=== PATIENT | male | born 1985 | race Caucasian/White ===

== ENCOUNTER 2021-08-07 20:28 | Inpatient (IN) | payer OTHER ==
[2021-08-07] MEDS ORDERED: ACETAMINOPHEN 1000 MG/100 ML VIAL (NON FORMULARY) IVPB ONE (21:47)
[2021-08-07] MEDS ORDERED: SODIUM CHLORIDE 0.9% 500 ML INFUS.BAG IV ONE (21:47)
[2021-08-07] MEDS ORDERED: ACETAMINOPHEN INJECTION 100 ML IVPB ONE (21:56)
[2021-08-07 23:03] LABS: HEMATOCRIT 37.1 % (35.4-49); HEMOGLOBIN 12.6 GM/dL (11.7-16.9); MCH 27.7 pg (25.7-33.7); MEAN CELL VOLUME 81.6 fl (80-96); MEAN PLT VOLUME 7.6 fl (7.5-11.1); PLATELET COUNT 311 10^3/uL (134-434); RBC 4.55 M/mm3 (4.00-5.60); WHITE BLOOD COUNT 6.2 K/mm3 (4.0-10.0)
[2021-08-07 23:04] LABS: BASO % 0.6 % (0-2.0); EOS % 1.1 % (0-4.5); LYMPH % 29.1 % (8-40); MONO % 8.6 % (3.8-10.2); NEUT % 60.6 % (42.8-82.8)
[2021-08-07 23:47] LABS: CREATININE 1.4 mg/dL (0.55-1.3)
[2021-08-07 23:48] LABS: ALBUMIN 3.7 g/dl (3.4-5.0); CALCIUM 8.6 mg/dL (8.5-10.1); TOT PROT 7.4 g/dl (6.4-8.2)
[2021-08-07 23:49] LABS: BILIRUBIN,TOTAL 0.5 mg/dL (0.2-1)
[2021-08-08 00:03] LABS: URINE APPEARANCE CLEAR; URINE BILIRUBIN NEGATIVE (NEGATIVE); URINE COLOR YELLOW; URINE GLUCOSE (UA) NEGATIVE (NEGATIVE); URINE KETONE NEGATIVE (NEGATIVE)
[2021-08-08 00:04] LABS: URINE LEUK ESTERASE NEGATIVE (NEGATIVE); URINE NITRITE NEGATIVE (NEGATIVE); URINE PROTEIN NEGATIVE (NEGATIVE); URINE UROBILINOGEN 0.2 mg/dL (0.2-1.0)
[2021-08-08] MEDS ORDERED: CEFTRIAXONE 1 GM in DEXTROSE 5%-WATER - 100 ML IVPB ONE (01:13)
[2021-08-08] MEDS ORDERED: KETOROLAC TROMETHAMINE 15 MG/ML VIAL IVPUSH ONE (01:50)
[2021-08-08] MEDS ORDERED: CEFTRIAXONE 1 GM/50 ML BAG ONE (01:57)
[2021-08-08] MEDS ORDERED: KETOROLAC TROMETHAMINE 15 MG/ML VIAL ONE (02:01)
[2021-08-08] MEDS ORDERED: ACETAMINOPHEN 1000 MG/100 ML VIAL (NON FORMULARY) IVPB PRN (03:10)
[2021-08-08] MEDS ORDERED: morphine SULFATE 4 MG/ML VIAL IVPUSH PRN ×2 (03:11)
[2021-08-08] MEDS: SODIUM CHLORIDE 1,000 ML IV SCH (06:05)
[2021-08-08 08:37] LABS: BLOOD UREA NITROGEN 20.3 mg/dL (7-18); CREATININE 1.3 mg/dL (0.55-1.3); GLUCOSE,RANDOM 95 mg/dL (74-106); SODIUM 141 mmol/L (136-145)
[2021-08-08 08:38] LABS: CALCIUM 8.4 mg/dL (8.5-10.1); CHLORIDE 109 mmol/L (98-107); CO2 27 mmol/L (21-32)
[2021-08-08] MEDS: TAMSULOSIN HCL 0.4 MG CAP PO SCH (08:40)
[2021-08-08] MEDS ORDERED: TAMSULOSIN HCL 0.4 MG CAP ONE (09:08)
[2021-08-08 09:39] LABS: HEMATOCRIT 36.6 % (35.4-49); HEMOGLOBIN 12.5 GM/dL (11.7-16.9); MCH 27.6 pg (25.7-33.7); MCHC 34.3 g/dl (32.0-35.9); MEAN CELL VOLUME 80.7 fl (80-96); MEAN PLT VOLUME 7.6 fl (7.5-11.1); PLATELET COUNT 289 10^3/uL (134-434); RBC 4.54 M/mm3 (4.00-5.60); RDW 13.1 % (11.9-15.9); WHITE BLOOD COUNT 5.9 K/mm3 (4.0-10.0)
[2021-08-08] MEDS ORDERED: morphine SULFATE 4 MG/ML VIAL ONE (09:46)
[2021-08-08] MEDS ORDERED: ENOXAPARIN NA (PORCINE) 40 MG/0.4 ML DISP.SYRIN SQ ONE (09:51)
[2021-08-08] MEDS: ENOXAPARIN NA (PORCINE) 40 MG/0.4 ML DISP.SYRIN SQ SCH ×2 (10:04→21:09)
[2021-08-08 10:21] LABS: PROTHROMBIN TIME (PATIENT) 12.3 SEC (9.7-13.0)
[2021-08-08 12:32] VITALS: BMI 41.1
[2021-08-09] MEDS: SODIUM CHLORIDE 1,000 ML IV SCH (05:27)
[2021-08-09] MEDS: TAMSULOSIN HCL 0.4 MG CAP PO SCH (09:55)
[2021-08-09] MEDS ORDERED: MIDAZOLAM HCL 2 MG/2 ML SINGLE DOSE VIAL ONE (13:38)
[2021-08-09] MEDS ORDERED: PROPOFOL 20 ML ONE (13:38)
[2021-08-09] MEDS ORDERED: SEVOFLURANE 250 ML BTL ONE (13:39)
[2021-08-09] MEDS ORDERED: oxyCODONE HCL 5 MG TABLET PO PRN (13:50)
[2021-08-09] MEDS ORDERED: ONDANSETRON 4 MG/2 ML VIAL IVPUSH PRN ×3 (13:50→16:10)
[2021-08-09] MEDS ORDERED: CEFTRIAXONE 1 GM in DEXTROSE 5%-WATER - 50 ML IVPB ONE (14:00)
[2021-08-09] MEDS ORDERED: LACTATED RINGERS SOLUTION 1,000 ML IV SCH ×2 (14:00→16:00)
[2021-08-09] MEDS ORDERED: cefTRIAXone SODIUM 1 GM VIAL IVPB ONE (14:27)
[2021-08-09] MEDS ORDERED: KETOROLAC TROMETHAMINE 30 MG/1 ML VIAL ONE (15:31)
[2021-08-09] MEDS ORDERED: PROMETHAZINE HCL 25 MG/1 ML VIAL IVPUSH PRN (15:50)
[2021-08-09] MEDS ORDERED: SODIUM CHLORIDE 1,000 ML IV SCH (16:10)
[2021-08-09 17:44] VITALS: BP 134/88; PULSE 56; TEMP 97.7
[2021-08-09] MEDS ORDERED: FLU VACC QS2021-22(6MOS UP)/PF 60 MCG/0.5 ML SYRINGE IM ONE (19:14)
[2021-08-09] MEDS ORDERED: ACETAMINOPHEN 1000 MG/100 ML VIAL (NON FORMULARY) IVPB ONE (19:36)
[2021-08-10] MEDS ORDERED: TAMSULOSIN HCL 0.4 MG CAP PO SCH (08:30)
== END 2021-08-09 20:38 | disposition home or self-care (01) | DRG 446 ==
LOC: JER 20:28 → JERBED 08-08 01:52 → J5S 08-08 11:34
PROVIDERS: ADMIT Internal Medicine; ATTEND Internal Medicine
PROC: 0T778DZ Dilation of Left Ureter with Intraluminal Device, Via Natural or Artificial Opening Endoscopic (ICD-10-PCS; principal; 2021-08-09 14:00)
PROC: 0TC78ZZ Extirpation of Matter from Left Ureter, Via Natural or Artificial Opening Endoscopic (ICD-10-PCS; 2021-08-09 14:00)
PROC: BT1FZZZ Fluoroscopy of Left Kidney, Ureter and Bladder (ICD-10-PCS; 2021-08-09 14:00)
DX: N17.9 Acute kidney failure, unspecified (principal); N13.2 Hydronephrosis with renal and ureteral calculous obstruction; E66.01 Morbid (severe) obesity due to excess calories; Z68.41 Body mass index [BMI] 40.0-44.9, adult
CPT/HCPCS: 36415; 74176-TC; 80048; 80053; 81003; 82360; 85025; 85027; 85610; 87086; 88300-TC; 93005; 93010; 94760; 99285-25; C9803; J0131; U0003; U0005

== ENCOUNTER 2021-08-15 20:03 | Emergency (ER) | payer OTHER ==
[2021-08-15 20:12] VITALS: BP 121/72; BMI 32.4
[2021-08-15] MEDS ORDERED: SODIUM CHLORIDE 0.9% 500 ML INFUS.BAG IV ONE (21:08)
[2021-08-15] MEDS ORDERED: IBUPROFEN 400 MG TABLET (FP) PO ONE ×2 (21:09→21:12)
[2021-08-15 21:55] LABS: BASO % 0.7 % (0-2.0); EOS % 0.9 % (0-4.5); HEMATOCRIT 38.3 % (35.4-49); HEMOGLOBIN 13.2 GM/dL (11.7-16.9); LYMPH % 10.8 % (8-40); MCH 27.5 pg (25.7-33.7); MCHC 34.5 g/dl (32.0-35.9); MEAN CELL VOLUME 79.8 fl (80-96); MEAN PLT VOLUME 7.1 fl (7.5-11.1); MONO % 5.2 % (3.8-10.2); NEUT % 82.4 % (42.8-82.8); PLATELET COUNT 358 10^3/uL (134-434); RDW 12.9 % (11.9-15.9); WHITE BLOOD COUNT 10.3 K/mm3 (4.0-10.0)
[2021-08-15 21:58] LABS: EPI CELLS 4 /uL (0-25.1); HYALINE CASTS 1 /uL (0-3.1); PH,URINE 6.5 (5.0-8.0); URINE APPEARANCE CLEAR; URINE BACTERIA 56 /uL (0-1359); URINE BILIRUBIN NEGATIVE (NEGATIVE); URINE COLOR YELLOW; URINE GLUCOSE (UA) NEGATIVE (NEGATIVE); URINE KETONE NEGATIVE (NEGATIVE); URINE LEUK ESTERASE 1+ (NEGATIVE); URINE NITRITE NEGATIVE (NEGATIVE); URINE PROTEIN NEGATIVE (NEGATIVE); URINE RBC 42 /uL (0-23.9); URINE UROBILINOGEN 0.2 mg/dL (0.2-1.0); URINE WBC 12 /uL (0-25.8)
[2021-08-15 22:10] LABS: CALCIUM 8.4 mg/dL (8.5-10.1)
[2021-08-15 22:11] LABS: ALBUMIN 3.6 g/dl (3.4-5.0)
[2021-08-15 22:14] LABS: CREATININE 1.2 mg/dL (0.55-1.3)
[2021-08-15 22:16] LABS: BILIRUBIN,TOTAL 0.3 mg/dL (0.2-1); TOT PROT 7.8 g/dl (6.4-8.2)
[2021-08-15] MEDS ORDERED: ACETAMINOPHEN 1000 MG/100 ML VIAL (NON FORMULARY) IVPB ONE (23:05)
[2021-08-15] MEDS ORDERED: ACETAMINOPHEN INJECTION 100 ML IVPB ONE (23:39)
[2021-08-16 00:31] VITALS: PULSE 61; TEMP 98.7
== END 2021-08-16 | disposition home or self-care (01) ==
LOC: JER 20:03
PROC: 3E033GC Introduction of Other Therapeutic Substance into Peripheral Vein, Percutaneous Approach (ICD-10-PCS; principal; 2021-08-15)
DX: J02.0 Streptococcal pharyngitis (principal)
CPT/HCPCS: 36415; 80053; 81003; 85025; 87070; 87086; 87186; 87804; 87880; 96374; 99284-25; C9803; J0131; U0003; U0005

== ENCOUNTER 2021-08-16 13:19 | Inpatient (IN) | payer OTHER ==
[2021-08-16] MEDS ORDERED: CEFTRIAXONE 1,000 MG in DEXTROSE 5%-WATER - 50 ML IVPB ONE (13:51)
[2021-08-16] MEDS ORDERED: SODIUM CHLORIDE 1,905 ML IV ONE (13:57)
[2021-08-16] MEDS ORDERED: ACETAMINOPHEN 1000 MG/100 ML VIAL IVPB ONE (14:05)
[2021-08-16] MEDS ORDERED: ACETAMINOPHEN INJECTION 100 ML IVPB ONE (14:26)
[2021-08-16] MEDS ORDERED: CEFTRIAXONE 1 GM/50 ML BAG ONE (14:26)
[2021-08-16 14:34] LABS: BASO % 0.2 % (0-2.0); HEMATOCRIT 38.6 % (35.4-49); HEMOGLOBIN 13.1 GM/dL (11.7-16.9); LYMPH % 5.7 % (8-40); MCH 27.4 pg (25.7-33.7); MEAN CELL VOLUME 80.7 fl (80-96); MEAN PLT VOLUME 7.4 fl (7.5-11.1); MONO % 4.4 % (3.8-10.2); NEUT % 89.7 % (42.8-82.8); PLATELET COUNT 348 10^3/uL (134-434); RBC 4.78 M/mm3 (4.00-5.60); RDW 13.1 % (11.9-15.9)
[2021-08-16 14:39] LABS: VENOUS BASE EXCESS 2.7 mmol/L (-2-2); VENOUS O2 SATURATION 39.4 % (70-80); VENOUS PCO2 32.2 mmHg (38-52); VENOUS PH 7.509 (7.310-7.410)
[2021-08-16 14:41] LABS: INR 1.23 (0.83-1.09); PROTHROMBIN TIME (PATIENT) 15.1 SEC (9.7-13.0)
[2021-08-16 14:43] LABS: ACTIVATED PTT 31.4 SECONDS (25.2-36.5)
[2021-08-16 14:57] LABS: CALCIUM 8.6 mg/dL (8.5-10.1)
[2021-08-16 14:58] LABS: ALBUMIN 3.7 g/dl (3.4-5.0); BLOOD UREA NITROGEN 16.4 mg/dL (7-18)
[2021-08-16 15:01] LABS: CREATININE 1.4 mg/dL (0.55-1.3)
[2021-08-16 15:02] LABS: BILIRUBIN,TOTAL 0.7 mg/dL (0.2-1); TOT PROT 7.9 g/dl (6.4-8.2)
[2021-08-16 15:03] LABS: LACTIC ACID 3.1 mmol/L (0.4-2.0)
[2021-08-16] MEDS ORDERED: TAMSULOSIN HCL 0.4 MG CAP PO ONE (15:15)
[2021-08-16] MEDS ORDERED: morphine CARPU-JECT 4 MG/1 ML DISP.SYRIN IVPUSH ONE (15:17)
[2021-08-16] MEDS ORDERED: SODIUM CHLORIDE 0.9% 500 ML INFUS.BAG IV ONE (15:22)
[2021-08-16] MEDS ORDERED: ONDANSETRON 4 MG/2 ML VIAL IVPUSH ONE (15:22)
[2021-08-16] MEDS ORDERED: PIPERACILLIN/TAZOB 3.375 GM 3.375 GM in DEXTROSE 5%-WATER - 50 ML IVPB ONE (15:28)
[2021-08-16] MEDS ORDERED: SODIUM CHLORIDE 1,000 ML IV SCH (15:30)
[2021-08-16] MEDS ORDERED: VANCOMYCIN/WATER 1,250 MG/250 ML BAG IVPB ONE (15:30)
[2021-08-16] MEDS ORDERED: PIPERACILLIN/TAZOB 3.375 GM 4.5 GM in DEXTROSE 5%-WATER - 50 ML IVPB ONE (15:31)
[2021-08-16] MEDS ORDERED: PIPERACILLIN/TAZOB 4.5 GM 4.5 GM/100 ML BAG IVPB ONE (15:33)
[2021-08-16] MEDS ORDERED: ONDANSETRON 4 MG/2 ML VIAL ONE (15:35)
[2021-08-16] MEDS ORDERED: METOCLOPRAMIDE HCL INJECTION 10 MG/2 ML VIAL IVPB ONE (15:40)
[2021-08-16] MEDS ORDERED: METOCLOPRAMIDE HCL INJECTION 10 MG/2 ML VIAL ONE (15:42)
[2021-08-16] MEDS ORDERED: MEROPENEM 1 GM in DEXTROSE 5%-WATER 100 ML IVPB SCH (16:00)
[2021-08-16] MEDS ORDERED: MEROPENEM 1 GM VIAL (RESTRICTED TO ID) IVPB ONE (16:01)
[2021-08-16] MEDS: MEROPENEM 1 GM in DEXTROSE 5%-WATER 100 ML IVPB SCH (16:10)
[2021-08-16 17:25] LABS: EPI CELLS 17 /uL (0-25.1); HYALINE CASTS 2 /uL (0-3.1); URINE APPEARANCE CLEAR; URINE BACTERIA 62 /uL (0-1359); URINE BILIRUBIN NEGATIVE (NEGATIVE); URINE COLOR YELLOW; URINE GLUCOSE (UA) NEGATIVE (NEGATIVE); URINE KETONE NEGATIVE (NEGATIVE); URINE LEUK ESTERASE 2+ (NEGATIVE); URINE NITRITE NEGATIVE (NEGATIVE); URINE PROTEIN 1+ (NEGATIVE); URINE RBC 651 /uL (0-23.9); URINE UROBILINOGEN 0.2 mg/dL (0.2-1.0); URINE WBC 159 /uL (0-25.8)
[2021-08-16] MEDS ORDERED: ACETAMINOPHEN 325 MG TABLET (FP) PO ONE (18:36)
[2021-08-16] MEDS ORDERED: ACETAMINOPHEN 325 MG TABLET (FP) ONE (18:45)
[2021-08-16] MEDS: SODIUM CHLORIDE 1,000 ML IV SCH ×2 (18:48→22:55)
[2021-08-16 19:51] LABS: LACTIC ACID 2.8 mmol/L (0.4-2.0)
[2021-08-16] MEDS: HEPARIN NA (PORCINE) 5,000 UNITS/ML 1ML VIAL SQ SCH (22:58)
[2021-08-16] MEDS: ACETAMINOPHEN 325 MG TABLET (FP) PO PRN (23:46)
[2021-08-17] MEDS ORDERED: MEROPENEM 1 GM VIAL (RESTRICTED TO ID) IVPB ONE ×3 (01:03→17:54)
[2021-08-17] MEDS ORDERED: DEXTROSE 5%-WATER 100 ML IVPB ONE ×3 (01:03→17:54)
[2021-08-17] MEDS: MEROPENEM 1 GM in DEXTROSE 5%-WATER 100 ML IVPB SCH ×3 (01:17→18:18)
[2021-08-17 04:33] VITALS: BMI 30.7
[2021-08-17] MEDS: ACETAMINOPHEN 325 MG TABLET (FP) PO PRN ×2 (06:08→14:18)
[2021-08-17] MEDS: HEPARIN NA (PORCINE) 5,000 UNITS/ML 1ML VIAL SQ SCH ×3 (06:08→21:30)
[2021-08-17] MEDS: SODIUM CHLORIDE 1,000 ML IV SCH ×2 (06:10→14:43)
[2021-08-17] MEDS: TAMSULOSIN HCL 0.4 MG CAP PO SCH (10:27)
[2021-08-17 10:47] LABS: BASO % 0.5 % (0-2.0); HEMATOCRIT 33.5 % (35.4-49); HEMOGLOBIN 11.2 GM/dL (11.7-16.9); LYMPH % 8.1 % (8-40); MCHC 33.4 g/dl (32.0-35.9); MEAN CELL VOLUME 80.7 fl (80-96); MEAN PLT VOLUME 7.3 fl (7.5-11.1); MONO % 6.3 % (3.8-10.2); NEUT % 85.1 % (42.8-82.8); PLATELET COUNT 287 10^3/uL (134-434); RBC 4.15 M/mm3 (4.00-5.60); RDW 13.4 % (11.9-15.9); WHITE BLOOD COUNT 19.8 K/mm3 (4.0-10.0)
[2021-08-17 11:14] LABS: CALCIUM 7.6 mg/dL (8.5-10.1); MAGNESIUM 1.8 mg/dL (1.8-2.4)
[2021-08-17 11:15] LABS: BLOOD UREA NITROGEN 11.9 mg/dL (7-18)
[2021-08-17 11:17] LABS: PHOSPHOROUS 2.6 mg/dL (2.5-4.9)
[2021-08-17 11:18] LABS: CREATININE 1.1 mg/dL (0.55-1.3)
[2021-08-17 11:19] LABS: BILIRUBIN,TOTAL 0.5 mg/dL (0.2-1); TOT PROT 6.4 g/dl (6.4-8.2)
[2021-08-17] MEDS ORDERED: PT OWN MED DRAWER 7, Y5N ONE (11:24)
[2021-08-17 11:31] LABS: ALBUMIN 2.6 g/dl (3.4-5.0)
[2021-08-17] MEDS ORDERED: ACETAMINOPHEN 1000 MG/100 ML VIAL IVPB ONE (22:52)
[2021-08-18] MEDS: SODIUM CHLORIDE 1,000 ML IV SCH ×2 (01:15→17:06)
[2021-08-18] MEDS ORDERED: MEROPENEM 1 GM VIAL (RESTRICTED TO ID) IVPB ONE ×3 (01:50→16:53)
[2021-08-18] MEDS ORDERED: DEXTROSE 5%-WATER 100 ML IVPB ONE ×3 (01:50→16:53)
[2021-08-18] MEDS: MEROPENEM 1 GM in DEXTROSE 5%-WATER 100 ML IVPB SCH ×3 (01:51→17:06)
[2021-08-18] MEDS: HEPARIN NA (PORCINE) 5,000 UNITS/ML 1ML VIAL SQ SCH ×3 (05:59→21:24)
[2021-08-18 09:04] LABS: BASO % 0.7 % (0-2.0); EOS % 0.1 % (0-4.5); HEMATOCRIT 33.7 % (35.4-49); HEMOGLOBIN 11.3 GM/dL (11.7-16.9); LYMPH % 14.3 % (8-40); MCHC 33.4 g/dl (32.0-35.9); MEAN CELL VOLUME 80.8 fl (80-96); MEAN PLT VOLUME 7.9 fl (7.5-11.1); NEUT % 77.9 % (42.8-82.8); PLATELET COUNT 293 10^3/uL (134-434); RBC 4.17 M/mm3 (4.00-5.60); RDW 13.2 % (11.9-15.9); WHITE BLOOD COUNT 12.8 K/mm3 (4.0-10.0)
[2021-08-18 09:31] LABS: CALCIUM 8.1 mg/dL (8.5-10.1)
[2021-08-18 09:35] LABS: CREATININE 0.7 mg/dL (0.55-1.3)
[2021-08-18] MEDS: TAMSULOSIN HCL 0.4 MG CAP PO SCH (09:46)
[2021-08-19] MEDS ORDERED: MEROPENEM 1 GM VIAL (RESTRICTED TO ID) IVPB ONE ×3 (00:21→16:38)
[2021-08-19] MEDS ORDERED: DEXTROSE 5%-WATER 100 ML IVPB ONE ×3 (00:22→16:39)
[2021-08-19] MEDS: SODIUM CHLORIDE 1,000 ML IV SCH ×3 (00:50→17:21)
[2021-08-19] MEDS: MEROPENEM 1 GM in DEXTROSE 5%-WATER 100 ML IVPB SCH ×3 (01:02→17:19)
[2021-08-19] MEDS: HEPARIN NA (PORCINE) 5,000 UNITS/ML 1ML VIAL SQ SCH ×3 (05:45→21:07)
[2021-08-19 08:03] LABS: EOS % 0.3 % (0-4.5); HEMATOCRIT 33.6 % (35.4-49); HEMOGLOBIN 11.4 GM/dL (11.7-16.9); LYMPH % 19.2 % (8-40); MCH 27.4 pg (25.7-33.7); MCHC 33.9 g/dl (32.0-35.9); MEAN CELL VOLUME 80.9 fl (80-96); MONO % 7.1 % (3.8-10.2); NEUT % 72.4 % (42.8-82.8); PLATELET COUNT 332 10^3/uL (134-434); RBC 4.15 M/mm3 (4.00-5.60); RDW 13.1 % (11.9-15.9); WHITE BLOOD COUNT 9.5 K/mm3 (4.0-10.0)
[2021-08-19 08:40] LABS: CALCIUM 7.9 mg/dL (8.5-10.1)
[2021-08-19 08:41] LABS: ALBUMIN 2.6 g/dl (3.4-5.0); BLOOD UREA NITROGEN 9.3 mg/dL (7-18)
[2021-08-19 08:42] LABS: BILIRUBIN,TOTAL 0.6 mg/dL (0.2-1)
[2021-08-19 08:43] LABS: TOT PROT 6.6 g/dl (6.4-8.2)
[2021-08-19 08:44] LABS: CREATININE 0.7 mg/dL (0.55-1.3); PHOSPHOROUS 2.9 mg/dL (2.5-4.9)
[2021-08-19] MEDS: TAMSULOSIN HCL 0.4 MG CAP PO SCH (08:53)
[2021-08-20] MEDS ORDERED: MEROPENEM 1 GM VIAL (RESTRICTED TO ID) IVPB ONE ×2 (00:28→09:24)
[2021-08-20] MEDS ORDERED: DEXTROSE 5%-WATER 100 ML IVPB ONE ×2 (00:28→09:24)
[2021-08-20] MEDS: MEROPENEM 1 GM in DEXTROSE 5%-WATER 100 ML IVPB SCH ×2 (02:00→09:25)
[2021-08-20] MEDS: SODIUM CHLORIDE 1,000 ML IV SCH ×2 (03:10→10:53)
[2021-08-20 05:22] VITALS: TEMP 98.7
[2021-08-20] MEDS: HEPARIN NA (PORCINE) 5,000 UNITS/ML 1ML VIAL SQ SCH ×2 (06:29→14:41)
[2021-08-20 08:53] LABS: HEMATOCRIT 33.3 % (35.4-49); HEMOGLOBIN 11.2 GM/dL (11.7-16.9); LYMPH % 24.9 % (8-40); MCHC 33.7 g/dl (32.0-35.9); MEAN PLT VOLUME 7.5 fl (7.5-11.1); MONO % 8.1 % (3.8-10.2); PLATELET COUNT 368 10^3/uL (134-434); RBC 4.16 M/mm3 (4.00-5.60); RDW 12.9 % (11.9-15.9); WHITE BLOOD COUNT 6.8 K/mm3 (4.0-10.0)
[2021-08-20] MEDS: TAMSULOSIN HCL 0.4 MG CAP PO SCH (09:25)
[2021-08-20 09:26] LABS: ALBUMIN 2.7 g/dl (3.4-5.0); BLOOD UREA NITROGEN 9.5 mg/dL (7-18); CALCIUM 8.4 mg/dL (8.5-10.1)
[2021-08-20 09:27] LABS: MAGNESIUM 2.1 mg/dL (1.8-2.4)
[2021-08-20 09:29] LABS: CREATININE 0.7 mg/dL (0.55-1.3)
[2021-08-20 09:30] LABS: BILIRUBIN,TOTAL 0.6 mg/dL (0.2-1); PHOSPHOROUS 3.6 mg/dL (2.5-4.9); TOT PROT 6.8 g/dl (6.4-8.2)
[2021-08-20 13:57] VITALS: BP 107/61; PULSE 61
== END 2021-08-20 15:37 | disposition home or self-care (01) | DRG 721 ==
LOC: JER 13:19 → JERBED 14:05 → J6S 21:14
DX: T81.49XA Infection following a procedure, other surgical site, initial encounter (principal); T81.44XA Sepsis following a procedure, initial encounter; A41.9 Sepsis, unspecified organism; N13.6 Pyonephrosis; N17.9 Acute kidney failure, unspecified; K21.9 Gastro-esophageal reflux disease without esophagitis; D72.829 Elevated white blood cell count, unspecified; R31.9 Hematuria, unspecified; J02.9 Acute pharyngitis, unspecified; I95.9 Hypotension, unspecified; R74.01 Elevation of levels of liver transaminase levels; K76.0 Fatty (change of) liver, not elsewhere classified; Y83.6 Removal of other organ (partial) (total) as the cause of abnormal reaction of the patient, or of later complication, without mention of misadventure at the time of the procedure
CPT/HCPCS: 36415; 71045-TC-FY; 74176-TC; 80048; 80053; 81003; 82803; 83605; 83735; 84100; 84484; 85025; 85610; 85730; 86850; 86900; 86901; 87040; 87086; 93005; 93010; 99285-25; C9803; J0131; J1644; U0003; U0005